=== PATIENT | male | born 1985 | race Caucasian/White ===

== ENCOUNTER 2019-02-08 19:33 | Emergency (ER) | payer MEDICAID ==
[~2019-02-08] VITALS: Ht 167.6 cm; Wt 91.0 kg
[~2019-02-08 19:33] MED LIST: OMEP-110
--- NOTE | 2019-02-08 20:16 | NUR ---
lab paged to draw pt.
[2019-02-08] MEDS ORDERED: COLCHICINE 0.6 MG TABLET ONE (20:17)
[2019-02-08] MEDS ORDERED: INDOMETHACIN 50 MG CAPSULE ONE (20:17)
--- NOTE | 2019-02-08 20:26 | NUR ---
pt presents to ED with c/o right great toe pain and swelling x 2 days. cms intact. pt medicated per emar, tolerated well. drawn by lab. awaiting lab results and dispo at this time.
[2019-02-08] MEDS ORDERED: COLCHICINE 0.6 MG TABLET PO ONE (20:30)
[2019-02-08] MEDS ORDERED: INDOMETHACIN 50 MG CAPSULE PO ONE (20:30)
[2019-02-08 20:32] LABS: BASOPHILS # (AUTO) 0.05 x10^3/uL (0-0.1); BASOPHILS % (AUTO) 1 % (0-1); EOSINOPHILS # (AUTO) 0.27 x10^3/uL (0-0.4); EOSINOPHILS % (AUTO) 3 % (1-7); LYMPHOCYTES # (AUTO) 2.45 x10^3/uL (1-3.4); LYMPHOCYTES % (AUTO) 29 % (22-44); MD NO; MEAN CORPUSCULAR HEMOGLOBIN 29.5 pg (27.5-34.5); MEAN CORPUSCULAR VOLUME 86.6 fL (81-97); MEAN PLATELET VOLUME 8.4 fL (7.4-10.4); MONOCYTES # (AUTO) 0.77 x10^3/uL (0.2-0.8); MONOCYTES % (AUTO) 9 % (2-9); NEUTROPHILS # (AUTO) 4.94 x10^3/uL (1.8-6.8); NEUTROPHILS % (AUTO) 58 % (42-75); PLATELET COUNT 289 x10^3/uL (130-400); RED BLOOD COUNT 4.83 x10^6/uL (4.38-5.82); RED CELL DISTRIBUTION WIDTH 13.4 % (9.4-14.8)
[2019-02-08 20:36] LABS: HCT (SEDRATE) 41.9 % (39.2-51.8)
[2019-02-08 20:43] LABS: ALBUMIN 4.3 g/dL (3.4-5.0); ANION GAP 8 mmol/L (5-15); CALCIUM 8.8 mg/dL (8.5-10.1); CHLORIDE 108 mmol/L (98-107)
--- NOTE | 2019-02-08 21:49 | NUR ---
EDMD Severo at bedside to update pt with results and POC.
[2019-02-08 22:20] VITALS: BP 145/102
--- NOTE | 2019-02-08 22:26 | NUR ---
[facility] H[employer] TE[employer]ER NOTIFIED MOST RECENT BP , PT DENIES CP/HEADACHE/SOB/VISION CHANGES. PT GIVEN DC INSTRUCTIONS AND SCRIPT. PT EDUCATED REGARDING INDOMETHACIN AND COLCHICINE RX. PT AMB TO DC DESK WITH STEADY GAIT, NADN AT DC.
== END 2019-02-08 22:27 | disposition home or self-care (01) ==
LOC: ED 22:13
DX: M10.071 Idiopathic gout, right ankle and foot (principal)
CPT/HCPCS: 36415; 80048; 82040; 84550; 85025; 85651; 99284